=== PATIENT | male | born 1970 | race African-American/Black ===

== ENCOUNTER 2018-05-15 13:38 | Emergency (ER) | payer OTHER, MEDICAID ==
[2018-05-15 13:47] VITALS: BP 128/87
[2018-05-15] MEDS ORDERED: ONDANSETRON DISINTEGRATING 4 MG TAB PO ONE (14:07)
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
== END 2018-05-15 15:32 | disposition home or self-care (01) ==
DX: S16.1XXA Strain of muscle, fascia and tendon at neck level, initial encounter (principal); S39.012A Strain of muscle, fascia and tendon of lower back, initial encounter; V49.49XA Driver injured in collision with other motor vehicles in traffic accident, initial encounter; Y92.410 Unspecified street and highway as the place of occurrence of the external cause
CPT/HCPCS: L0172